=== PATIENT | male | born 1985 | race Caucasian/White ===

== ENCOUNTER → 2018-08-10 | Day surgery (SDC) | payer OTHER ==
--- NOTE | 2018-08-09 09:52 | Pre Op History & Physical ---
CHIEF COMPLAINT: Nasal obstruction, nasal deformity. HISTORY OF PRESENT ILLNESS: This 33-year-old male has history of nasal obstruction. He has postnasal drip discharge from his nose. The patient's condition has been treated with topical nasal steroid, systemic steroid, antibiotics with no improvement of the condition. He had no previous trauma to the nose. He does have postnasal drip. He has normal sense of smell with no epistaxis. A CT scan of the paranasal sinuses done before surgery showed the patient has deviated nasal septum to the right with a bony spur. REVIEW OF SYSTEMS: No recent cardiovascular, respiratory or GI problem. PAST MEDICAL HISTORY: Patient has no significant medical problem except possible obstructive sleep apnea. PAST SURGICAL HISTORY: He has no previous surgery. ALLERGIES: HE HAS NO KNOWN ALLERGY TO MEDICATION. MEDICATIONS: He is on no regular medication. PERSONAL AND SOCIAL HISTORY: He smokes about a half a pack a day and is a nondrinker. FAMILY HISTORY: Noncontributory. PHYSICAL EXAMINATION VITAL SIGNS: Within normal limits. EAR: Normal tympanic membranes bilaterally. NOSE: Deviated nasal septum to the right side about 40%. THROAT: Oropharynx and oral cavity showed 3+ tonsils bilaterally with Mallampati level 3. NECK: No lymph node or thyroid palpable. CHEST: Good air entry bilaterally. CARDIOVASCULAR: S1 and S2. No murmur noted. Mr. Dean has chronic sinusitis and nasal obstruction, which have been resistant to conservative therapy. Suggested treatment is endoscopic sinus surgery, septoplasty, resection of inferior turbinate and other necessary procedure. The complications of the procedure include but not limited to bleeding, infection, septal perforation, septal hematoma, persistent nasal obstruction, persistent nasal crusting, nasal deformity, recurrence of the sinus problem along with CSF leak, blindness, double vision, meningitis, persistence or recurrence of the obstructive sleep apnea. The alternatives would be continued observation, continued antibiotic therapy, topical nasal steroid therapy, systemic steroid therapy, decongestant. The patient has elected to undergo the surgical procedure. Job#: [id number] cc:EFREN GIBSON MD
[~2018-08-10] MED LIST: ACETAMINOPHEN 1000 MG/100 ML 100 ML IV ONE; DEXAMETHASONE SOD PHOS INJ 4 MG/ML VIAL ONE; EPINEPHRINE HCL INJ 1 MG/ML AMP ONE; FENTANYL CITRATE/PF 100MCG/2 ML INJ ONE; HYDRALAZINE HCL 20 MG/ML VIAL ONE; LIDOCAINE 1% W/EPINEPHRINE 20 ML VIAL ONE; LIDOCAINE HCL (LTA) 4 ML SOLN ONE; LIDOCAINE HCL 2% LOCAL INJ 5 ML SDV VIAL INJ ONE; MIDAZOLAM HCL 2 MG/2 ML VIAL ONE; ONDANSETRON HCL INJ 2 MG/ML VIAL ONE; PROPOFOL IV EMULSION 10 MG/ML 20 ML VIAL ONE; ROCURONIUM BROMIDE 10 MG/ML 5ML VIAL ONE; SEVOFLURANE INHAL SOLN 250 ML PEN BTL ONE
[2018-08-10 14:35] VITALS: BP 144/83
--- NOTE | 2018-08-10 19:53 | Operative Report ---
DATE OF PROCEDURE: August 10, 2018 CHIEF COMPLAINT: Nasal obstruction, nasal deformity. POSTOPERATIVE DIAGNOSES: 1. Nasal obstruction. 2. Nasal deformity. OPERATIVES PROCEDURE: 1. Septoplasty. 2. Rigid nasal endoscopy. ANESTHESIA: [facility]esthesiology Group. INDICATIONS: This 33-year-old male has history of nasal obstruction. Patient has trouble breathing through his nose, worse on the left. His condition has been treated with topical nasal steroid, decongestant, antibiotics, even systemic steroid with no improvement. On examination he was noted to have a deviated nasal septum to the left side anteriorly about 40% with a septal spur along the length of the septum on the right side. It was decided that septoplasty and possible nasal endoscopy and other necessary procedures will be beneficial for him. DETAILS OF PROCEDURE: Patient was taken to the operating room and put under general aesthesia, endotracheally intubated. The nose was injected with 1% Xylocaine with 1:100,000 epinephrine for hemostasis. Epinephrine-soaked pledget was inserted in the nose and subsequently removed. A hemitransfixion incision was done on the left side. Mucoperichondrial flap was elevated on the left. The bony cartilaginous junction was encountered, and this was . The perpendicular plate of the ethmoid was transected. This was removed along with the vomer. The septal spur, cartilaginous portion was removed using a [place] elevator. The posterior portion of the septal spur which was bony was difficult to visualize with the speculum. A nasal endoscope 0-degree was used to help with the dissection. Using the nasal endoscope and the 4 mm straight chisel, the septal spur was removed. The quadrangular cartilage, after being freed from posterior inferior constraint, was able to swing back into the midline. The nasal endoscope was used to examine the nasal cavities on either side. No abnormality was noted. The patient was noted to have slightly enlarged adenoid tissue. The hemitransfixion incision was closed using 4-0 chromic suture in the interrupted fashion. A septal whipstitch was done using 4-0 plain gut suture to reapproximate the mucoperichondrial flap and prevent septal hematoma formation. A few pieces of Gelfoam were inserted into a certain area in the nasal cavities to prevent synechiae formation. The patient tolerated the above procedure well with estimated blood loss about 20 mL. He was given 20 mg of Decadron intraoperatively. Patient was able to be transferred to the recovery room in stable condition. Job#: [id number] cc:EFREN GIBSON MD
== END | disposition home or self-care (01) ==
LOC: OR 10:53
PROVIDERS: ATTEND Otolaryngology Otolaryngology/Facial Plastic Surgery
DX: J34.89 Other specified disorders of nose and nasal sinuses (principal); M95.0 Acquired deformity of nose; J34.2 Deviated nasal septum; G47.33 Obstructive sleep apnea (adult) (pediatric); E66.01 Morbid (severe) obesity due to excess calories; Z87.891 Personal history of nicotine dependence
CPT/HCPCS: 30520; 31231; 88300; 93005; J0131; J0171; J0360; J1100; J2001; J2250; J2405; J2704